=== PATIENT | male | born 1980 | race Caucasian/White ===

== ENCOUNTER 2022-11-07 16:13 | Emergency (ER) | payer OTHER ==
[2022-11-07] MEDS ORDERED: Lidocaine 1% w/Epinephrine 1:100K 20 ML VIAL ONE (17:08)
[2022-11-07] MEDS ORDERED: Bacitracin 1 PK ONE (17:31)
== END 2022-11-07 17:45 ==
LOC: NAV ERS 16:13
DX: S01.81XA Laceration without foreign body of other part of head, initial encounter (principal); W22.8XXA Striking against or struck by other objects, initial encounter; Y93.64 Activity, baseball
CPT/HCPCS: 12013